=== PATIENT | female | born 1975 | race Caucasian/White ===

== ENCOUNTER 2025-02-28 21:44 | Emergency (ER) | payer MEDICARE, SELFPAY ==
[2025-02-28 22:04] VITALS: BP 163/96; PULSE 79; RESP 18; TEMP 36.8; O2SAT 100; BMI 33.3
--- NOTE | 2025-02-28 22:14 | PC.NURSE ---
patient sent to lobby at this time until treatment room becomes available.
[2025-02-28 22:22] LABS: Coronavirus 19, PCR Not Detected (NotDetected); Influenza A, PCR Not Detected (NotDetected); Influenza B, PCR Not Detected (NotDetected)
[2025-02-28 22:30] LABS: Strep Scrn Group A (Rapid) Negative (Negative)
[2025-02-28 23:06] VITALS: BP 148/88; PULSE 79; RESP 15; TEMP 36.8; O2SAT 97
--- NOTE | 2025-02-28 23:20 | ED_ITS ---
Discharge Plan Disposition Patient Disposition: Home, Self-Care Condition: Good Prescriptions Prescriptions: New ondansetron 4 mg tablet,disintegrating 4 mg PO DAILY Qty: 30 0RF Referrals Follow up/Referrals: Provider,Referral, MD [Primary Care Provider, Medical] - See instructions Activity Restrictions/Add. Instructions Additional Instructions/Restrictions: Take Tylenol and Motrin as needed for pain control. I have sent you a Zofran which you can use for nausea and vomiting. Return to the emergency department if you are unable to tolerate oral intake, have continued worsening symptoms or if you have any other acute concerns. Clinical Impressions Clinical Impression: Acute viral pharyngitis Print Language Print Language: Georgian Discharge ED Provider: Hermila Hunt General Adult HPI General Chief complaint: Sore Throat Stated complaint: sore throat,nausea,Diarrhea Time Seen by Provider: 02/28/25 23:20 Mode of Arrival: Ambulatory Source of Information: Patient Description of Symptoms (Recalled from ER Triage Doc. by RN): patient presents to the ED for nausea and vomiting that has been going on for a long time and a sore throat. patient noticed the sore throat. History of Present Illness HPI narrative: Patient is an otherwise healthy 49-year-old female who presented to the emergency department with multiple complaints. Patient states that she has been having intermittent headaches, sore throat ear pain nasal congestion for a few days. Has also been having a sore throat reports some pain with swallowing. Patient denies any chest pain shortness of breath abdominal pain nausea vomiting or diarrhea. Patient denies any neurologic symptoms such as numbness weakness. Has no medical problems, does not take any daily medications. Related Data Previous Rx's ?Medication ?Instructions ?Recorded ondansetron 4 mg disintegrating 4 mg PO DAILY #30 tabs 02/28/25 tablet Allergies Allergy/AdvReac Type Severity Reaction Status Date / Time aspirin Allergy Rash Verified 02/28/25 22:16 fenoterol AdvReac Gastrointestinal Verified 02/28/25 22:16 Upset ibuprofen AdvReac Gastrointestinal Verified 02/28/25 22:16 Upset PFSH PFS Disclaimer: The information contained in this section may have been updated after the patient was seen, as this information can be updated by other users. Social History Smoking Status: Never smoker alcohol intake: never current occupational status: other Travel in the last 8 weeks?: None ROS Obtained: Yes All systems reviewed & no additional complaints except as documented and Yes Systems reviewed as appropriate & no additional complaints except as documented Physical Exam General General appearance: alert and in no apparent distress Head Head exam: atraumatic, normocephalic and normal inspection Eye Eye exam: Present normal appearance, PERRL and EOMI; Absent scleral icterus ENT ENT exam: Present normal exam, normal oropharynx, mucous membranes moist, mucous membranes dry, TM's normal bilaterally, normal external ear exam and other (Tonsils mildly enlarged bilaterally no exudates, uvula midline, no submandibular swelling) Neck Neck exam: Present normal inspection and full ROM Chest Chest inspection: Present normal inspection and symmetric chest wall rise Respiratory Respiratory exam: Present normal lung sounds bilaterally; Absent respiratory distress or wheezes Cardiovascular Cardiovascular exam: Present regular rate, normal rhythm and normal heart sounds Abdominal Exam Abdominal exam: Present soft and distention; Absent tenderness, guarding or rebound Extremities Exam Extremities exam: Present normal inspection and full ROM Back Exam Back exam: Present normal inspection and full ROM Neurological Exam Neurological exam: Present alert and oriented X3 Psychiatric Psychiatric exam: Present normal affect and normal mood Skin Skin exam: Present warm and dry Medical Decision Making Medical Records Medical records reviewed: Yes I reviewed the patient's medical records. Screening: Per USPSTF and CDC recommendations, given the prevalence of disease in our region, it is our hospital?s policy to screen for HIV and viral Hepatitis for all patients aged 18 and over and those with ongoing risk factors. [place] Inquiry Pt receiving controlled substance: No Vital Signs: 02/28/25 22:04 02/28/25 23:06 02/28/25 23:39 Temperature 98.2 F 98.2 F 98.2 F Temperature Source Oral Oral Oral Pulse Rate 79 67 Pulse Rate [Right Radial] 79 Respiratory Rate 18 15 15 Blood Pressure 148/88 H 148/88 H Blood Pressure [Right Arm] 163/96 H Blood Pressure Mean [Right Arm] 118 Blood Pressure Source Automatic Cuff Blood Pressure Source [Right Arm] Automatic Cuff Blood Pressure Position Sitting Blood Pressure Position [Right Arm] Sitting 02 Sat by Pulse Oximetry 100 97 Oxygen Delivery Method Room Air Room Air Room Air Lab Data Lab results reviewed: Yes I reviewed the patient's lab results. Lab Results 02/28/25 10:12: SARS-CoV-2 (PCR) Not detected, Influenza A Untype (PCR) Not detected, Influenza Type B (PCR) Not detected, Group A Strep Rapid Negative Orders (Tests/Meds): ORDERS Category Date Time Status Rapid PCR Covid and Flu A/B Stat Lab 02/28/25 10:12 Completed Rapid Strep Scrn Group A [Strep Scrn Group A (Rapid)] Lab 02/28/25 10:12 Completed Stat Strep Screen Confirmation Stat Micro 02/28/25 10:12 Received Medical Decision Narrative: Patient is an otherwise healthy 49-year-old female who presented to the emergency department with multiple complaints including intermittent headache and aches, cough, sore throat, body aches. On arrival, patient was hemodynamically stable with unremarkable vital signs. Differential includes but not limited to: Viral syndrome, pneumonia, allergies, strep pharyngitis, viral pharyngitis, amongst others. On exam, patient appeared very well, patient's lungs were clear to auscultation bilaterally, patient has not had any fevers low concern for pneumonia at this time. Patient's oropharynx showed some mild bilateral tonsillar hypertrophy no exudates. Uvula was midline no submandibular swelling. No clinical evidence of [employer] or Jose Miguel's angina. Patient had full range of motion of her neck, no meningismus low concern for meningitis at this time. She had an otherwise normal neurologic exam was nonfocal nature. Patient was not complaining of a headache at this moment. Viral swab was sent as well as strep swab which were negative. Patient was recommended to take Tylenol and Motrin for symptoms. Patient was g iven Zofran for additional treatment. Likely viral in nature as well as a viral pharyngitis. Patient was otherwise discharged home in stable condition, return precautions were discussed. Critical Care Critical Care Time Critical Care Time: No
[2025-02-28 23:39] VITALS: BP 148/88; PULSE 67; RESP 15; TEMP 36.8; O2SAT 100
== END 2025-02-28 23:39 | disposition home or self-care (01) ==
PROVIDERS: Emergency Provider Student in an Organized Health Care Education/Training Program
DX: R11.0 Nausea (principal); J02.9 Acute pharyngitis, unspecified; B34.9 Viral infection, unspecified
CPT/HCPCS: 87430; 87636; 99283